=== PATIENT | female | born 1995 ===

== ENCOUNTER 2018-05-16 20:39 | Emergency (ER) | payer BC ==
[2018-05-16] MEDS ORDERED: Lidocaine 2% PF * 5 ML VIAL ONE (21:27)
--- NOTE | 2018-05-16 22:03 | UC ---
Complaint Female HPI - HPI Summary HPI Summary: Ms. James presented with a concern that she has a Bartholin's abscess. She thinks she had one previously that resoved on its own so the diagnosis was never confirmed. She has an area on the right near the introitus that is sore and swollen. She is sexually active with one male partner. She has no abdominal pain or vaginal discharge. - History Of Current Complaint Chief Complaint: UCGU Stated Complaint: VAGINA COMPLAINT Time Seen by Provider: 05/16/18 21:10 Hx Obtained From: Patient Hx Last Menstrual Period: [id number] ?: No Onset/Duration: Gradual Onset Timing: Lasting Days Severity Initially: Mild Severity Currently: Moderate Pain Intensity: 0 Pain Scale Used: 0-10 Numeric Character: Dull Aggravating Factor(s): Movement, [place] Alleviating Factor(s): Nothing Associated Signs And Symptoms: Positive: Negative - Allergies/Home Medications Allergies/Adverse Reactions: Allergies Allergy/AdvReac Type Severity Reaction Status Date / Time Penicillins Allergy Rash Verified 05/16/18 20:51 Home Medications: Home Medications NK [No Home Medications Reported] 05/16/18 [History Confirmed 05/16/18] PMH/Surg Hx/FS Hx/Imm Hx Previously Healthy: Yes - Surgical History Surgical History: Yes Surgery Procedure, Year, and Place: ACL x 2 bilateral - Social History Alcohol Use: Occasionally Substance Use Type: None Smoking Status (MU): Never Smoked Tobacco Review of Systems All Other Systems Reviewed And Are Negative: Yes Constitutional: Positive: Negative ENT: Positive: Negative Respiratory: Positive: Negative Gastrointestinal: Positive: Negative Genitourinary: Positive: Negative, Vaginal/Penile Pain Motor: Positive: Negative Musculoskeletal: Positive: Negative Neurological: Positive: Negative Physical Exam - Summary Physical Exam Summary: She was non-toxic in appearance with stable vitals. Triage Information Reviewed: Yes Appearance: Well-Appearing Vital Signs: Initial Vital Signs Temp 97.8 F 05/16/18 20:46 Pulse 65 05/16/18 20:46 Resp 18 05/16/18 20:46 BP 135/91 05/16/18 20:46 Pulse Ox 100 05/16/18 20:46 Vital Signs Reviewed: Yes Eye Exam: Normal Eyes: Positive: Conjunctiva Clear ENT Exam: Normal Abdominal Exam: Normal Abdomen Description: Positive: Nontender Pelvic Exam: Positive: External Exam Normal, Speculum Exam Normal, Bimanual Exam Normal, No Cerv. Motion Tender Musculoskeletal Exam: Normal Complaint Female Dx - Course Course Of Treatment: I wasn't able to detect a Bartholin's cyst or any other pathology. It may be too early for me to tell. I gave her instructions about what to watch for and recommended F/U with Dr. Ta if problems continue, There is no evidence for a vaginitis, urethritis, vaginosis or other similar issue. - Differential Dx/Diagnosis Provider Diagnosis: Vaginal pain Discharge - Sign-Out/Discharge Documenting (check all that apply): Patient Departure All imaging exams completed and their final reports reviewed: No Studies - Discharge Plan Condition: Stable Disposition: HOME Patient Education Materials: Bartholin Cyst (ED) Referrals: Terrie Ta MD [Medical Doctor] - No Primary Care Phys,NOPCP [Primary Care Provider] - - Billing Disposition and Condition Condition: STABLE Disposition: Home
== END 2018-05-16 21:40 | disposition home or self-care (01) ==
LOC: UCEAST 20:39
DX: R10.2 Pelvic and perineal pain (principal); Z88.0 Allergy status to penicillin
CPT/HCPCS: 99201; G0463